=== PATIENT | female | born 1985 | race Caucasian/White ===

== ENCOUNTER 2018-12-18 20:17 | Emergency (ER) | payer BC ==
[~2018-12-18] VITALS: Ht 160 cm; Wt 62.2 kg
[~2018-12-18 20:17] MED LIST: AMOXICILLIN500 MG PO; AMOXICILLIN875 MG OR; BACTROBAN21 EX; CLINDAMYCIN2 % VA; DEPO-PROVER150 MG/ML IM; DIFLUCAN150 MG PO; FLEXERIL OR; INTEGRA F PO; KENALOG15 GM/TUBE EX; LORTAB 10 OR; LORTAB5 PO; MEDDOSEPAK PO; MONISTAT 72 % VA; MOTRIN800 MG PO; POLYTRIM OU; PRENATA4; PRENATAL1 TAB PO; ZANTAC 75 PO; ZITHROMAX250 MG PO
[2018-12-18] MEDS ORDERED: AMOXICILLIN875 MG PO (20:49)
[2018-12-18] MEDS ORDERED: DIFLUCAN100 M1 PO (20:49)
[2018-12-18 21:00] VITALS: BP 129/68
== END 2018-12-18 21:00 | disposition home or self-care (01) | DRG 153 ==
LOC: ED 20:17
DX: H66.91 Otitis media, unspecified, right ear (principal); R50.9 Fever, unspecified; H92.01 Otalgia, right ear